=== PATIENT | female | born 1995 | race Caucasian/White ===

== ENCOUNTER → 2022-11-26 08:01 | Outpatient (CLI) | payer MEDICAID, SELFPAY ==
[2022-11-26 09:27] LABS: HCG,Quantitative 13888 mIU/ml (0-5.42)
[2022-11-27 07:08] LABS: Progesterone 9.1 ng/mL (.)
== END ==
PROVIDERS: PCP Internal Medicine; Visit Provider Obstetrics & Gynecology
DX: Z34.91 Encounter for supervision of normal pregnancy, unspecified, first trimester (principal)
CPT/HCPCS: 36415; 84144; 84702

== ENCOUNTER → 2022-12-30 13:09 | Outpatient (CLI) | payer MEDICAID, SELFPAY | PROVIDERS: Visit Provider Obstetrics & Gynecology | DX: Z34.91 Encounter for supervision of normal pregnancy, unspecified, first trimester (principal); Z3A.11 11 weeks gestation of pregnancy | CPT/HCPCS: 87086; 87088; 87186 ==

== ENCOUNTER → 2023-01-03 12:48 | Outpatient (CLI) | payer MEDICAID, SELFPAY ==
[2023-01-03 13:28] LABS: Basophils % 0.4 % (0.1-2.0); Eosinophils # 0.1 K/mm3 (0.0-0.4); Hematocrit 40.5 % (37.0-47.0); Hemoglobin 13.6 g/dL (12.2-16.2); Lymphocytes # 2.2 K/mm3 (0.7-4.5); Lymphocytes % 25.4 % (10-50); Mean Corpuscular HGB Conc 33.6 g/dL (31.8-35.4); Mean Corpuscular Hemoglobin 30.6 pg (27.0-31.2); Monocytes # 0.5 K/mm3 (0.1-1.0); Monocytes % 5.7 % (1.7-9.3); Neutrophils # 5.7 K/mm3 (1.8-7.8); Neutrophils % 67.5 % (37.0-80.0); Platelet Count 243 K/mm3 (142-424); Red Blood Count 4.45 M/mm3 (4.20-5.40); Red Cell Distribution Width 13.1 % (11.5-17.5); White Blood Count 8.4 K/mm3 (4.8-10.8)
[2023-01-04 10:20] LABS: HIV Screen 4th Generation wRfx Non Reactive (Non Reactive)
[2023-01-04 11:20] LABS: Rapid Plasma Reagin Ab Titer Non Reactive (NonRea<1:1)
[2023-01-04 13:25] LABS: Rubella Antibodies, IgG 0.91 index (Immune >0.99)
[2023-01-08 11:12] LABS: Hepatitis B Surface Antigen Negative
[2023-01-08 11:13] LABS: Hepatitis C Antibody Non Reactive
== END ==
PROVIDERS: PCP Internal Medicine; Visit Provider Obstetrics & Gynecology
DX: Z34.91 Encounter for supervision of normal pregnancy, unspecified, first trimester (principal); Z3A.11 11 weeks gestation of pregnancy
CPT/HCPCS: 36415; 85025; 86593; 86703; 86762; 86850; 87340; 87380; G0432

== ENCOUNTER → 2023-02-01 10:30 | Outpatient (CLI) | payer MEDICAID, SELFPAY ==
[2023-02-01 11:31] LABS: Alanine Aminotransferase 23 U/L (12-78); Albumin Level 3.8 g/dl (3.5-5.0); Alkaline Phosphatase 50 U/L (38-126); Anion Gap 12.9 mEq/L (5-15); Aspartate Amino Transferase 30 U/L (14-36); Bilirubin,Indirect 0.4 mg/dL (0.0-0.9); Bilirubin,Total 0.4 mg/dl (0.2-1.3); Bilirubin,Unconjugated 0.4 mg/dL (0.0-1.1); Blood Urea Nitrogen 11 mg/dl (7-17); Calcium 9.3 mg/dl (8.4-10.2); Carbon Dioxide 23 mmol/L (22.0-30.0); Chloride 104 mmol/L (98-107); Chol/HDL Ratio 2.1 (1-3.5); Cholesterol 206 mg/dl (140-200); Estimated Glomerular Filt Rate 149 ml/min (>60); GFR (African American) 180 ML/MIN (>60); Glucose 75 mg/dl (74-100); HDL Cholesterol 99 mg/dl (40-60); Magnesium 1.5 mg/dl (1.6-2.3); Potassium 3.9 mmoL/L (3.5-5.1); Sodium 136 mmol/L (136-145); Triglycerides 151 mg/dl (30-150); VLDL Cholesterol 30 mg/dL (0-40)
[2023-02-01 11:47] LABS: Free T4 (Free Thyroxine) 1.02 ng/dl (0.78-2.19)
[2023-02-01 11:53] LABS: Direct LDL Cholesterol 94.59 mg/dL (100-129)
[2023-02-01 12:02] LABS: Thyroid Stimulating Hormone 1.24 uIU/mL (0.465-4.68)
== END ==
PROVIDERS: PCP Internal Medicine; Visit Provider Nurse Practitioner
DX: R00.2 Palpitations (principal); R06.00 Dyspnea, unspecified
CPT/HCPCS: 36415; 80048; 80061; 80076; 83735; 84439; 84443; 93225

== ENCOUNTER → 2023-03-08 10:31 | Outpatient (CLI) | payer MEDICAID, SELFPAY ==
--- NOTE | 2023-03-08 10:31 | US_ITS ---
PROCEDURE: US OB /MATERNAL DETAIL CLINICAL INDICATION: 20 week anatomy scan COMPARISON: No exams were available for comparison FINDINGS: Transabdominal and transvaginal sonographic images of the pelvis were obtained. From her established due date she is 20 weeks 4 days. Single viable intrauterine gestation. Breech position. Placenta: Posteriorplacenta grade 1. Placenta low-lying and marginal previa, 1 cm from internal cervical os. There is an average amount of fluid. The cervix appears satisfactory. Closed and measuring in length. Complete survey performed and was unremarkable on the submitted images as in PACS. No discrete anomalies identified on survey imaging by technologist. Active fetus. Three-vessel cord with satisfactory umbilical cord insertion. 4- chamber heart noted. Aortic arch, LVOT, RVOT, three-vessel view appear normal. Survey of brain & ventricles Unremarkable. Cerebellum, cisterna magna, thalamus, choroid plexus appear normal. Face and neck survey unremarkable. Profile, nasion, lips and nose appeared normal. Diaphragm and chest views unremarkable. Abdomen: Both kidneys noted and unremarkable. Stomach and bladder noted and satisfactory. Spine: Survey of the spine satisfactory with no anomalies identified nor imaged. Cervical, thoracic and lower spine appear normal. Both arms and legs noted. Amniotic Fluid: Adequate. Measurements: Average ultrasound age 20weeks 5days. Estimated due date by ultrasound age 0307/21/2023. Estimated weight 362g BPD = 20weeks 6days HC = 20weeks 4days AC = 20weeks 6days FL = 20weeks 2days Heart Rate = 146bpm Cerebellum = 20weeks 4days Humerus = 20weeks 6days HC/AC is 1.16 FL/BPD is 0.67 FL/AC is 0.21 IMPRESSION: 1. Viable fetus in the breech presentation with a posterior placenta grade 1. 2. The posterior placenta is marginal previa and is approximately 1 cm from the internal cervical os. 3. Suggest repeat scan at 28 weeks to see if the marginal previa resolves. 4. Anatomical scan appears normal. 5. biometry is consistent with dates. Dictated by: Juanjose Knight MD 03/08/2023 15:59 Juanjose Knight MD in [place] 03/08/2023 15:59
[2023-03-08 11:56] LABS: Basophils % 0.3 % (0.1-2.0); Eosinophils # 0.1 K/mm3 (0.0-0.4); Hematocrit 37.2 % (37.0-47.0); Hemoglobin 12.8 g/dL (12.2-16.2); Lymphocytes % 17.9 % (10-50); Mean Corpuscular HGB Conc 34.5 g/dL (31.8-35.4); Mean Corpuscular Hemoglobin 32.2 pg (27.0-31.2); Mean Corpuscular Volume 93.3 fl (81-99); Mean Platelet Volume 8.3 fl (7.4-10.4); Monocytes # 0.5 K/mm3 (0.1-1.0); Monocytes % 4.5 % (1.7-9.3); Neutrophils # 8.6 K/mm3 (1.8-7.8); Neutrophils % 76.3 % (37.0-80.0); Platelet Count 214 K/mm3 (142-424); Red Blood Count 3.99 M/mm3 (4.20-5.40); Red Cell Distribution Width 13.7 % (11.5-17.5); White Blood Count 11.3 K/mm3 (4.8-10.8)
[2023-03-08 13:10] LABS: Alanine Aminotransferase 18 U/L (12-78); Albumin Level 3.6 g/dl (3.5-5.0); Alkaline Phosphatase 49 U/L (38-126); Anion Gap 13.9 mEq/L (5-15); Aspartate Amino Transferase 31 U/L (14-36); Bilirubin,Indirect 0.3 mg/dL (0.0-0.9); Bilirubin,Total 0.3 mg/dl (0.2-1.3); Bilirubin,Unconjugated 0.3 mg/dL (0.0-1.1); Blood Urea Nitrogen 13 mg/dl (7-17); Calcium 9.5 mg/dl (8.4-10.2); Carbon Dioxide 23 mmol/L (22.0-30.0); Chloride 103 mmol/L (98-107); Chol/HDL Ratio 2.1 (1-3.5); Cholesterol 210 mg/dl (140-200); Estimated Glomerular Filt Rate 149 ml/min (>60); GFR (African American) 180 ML/MIN (>60); Glucose 71 mg/dl (74-100); HDL Cholesterol 99 mg/dl (40-60); Magnesium 1.5 mg/dl (1.6-2.3); Potassium 3.9 mmoL/L (3.5-5.1); Sodium 136 mmol/L (136-145); Total Protein,Serum 6.5 g/dl (6.3-8.2); Triglycerides 180 mg/dl (30-150); VLDL Cholesterol 36 mg/dL (0-40)
[2023-03-08 13:21] LABS: Direct LDL Cholesterol 100.21 mg/dL (100-129)
[2023-03-08 13:27] LABS: Free T4 (Free Thyroxine) 1.01 ng/dl (0.78-2.19)
[2023-03-08 13:41] LABS: Thyroid Stimulating Hormone 1.59 uIU/mL (0.465-4.68)
== END ==
PROVIDERS: Physician Assistant; PCP Internal Medicine; Visit Provider Obstetrics & Gynecology
DX: Z34.92 Encounter for supervision of normal pregnancy, unspecified, second trimester (principal); Z3A.20 20 weeks gestation of pregnancy; R00.2 Palpitations; R06.00 Dyspnea, unspecified
CPT/HCPCS: 36415; 76811; 80048; 80061; 80076; 83735; 84439; 84443; 85025

== ENCOUNTER → 2023-04-18 09:01 | Outpatient (CLI) | payer MEDICAID, SELFPAY ==
[2023-04-18 09:52] LABS: Glucose,Fasting 76 mg/dl (74-100)
[2023-04-18 09:55] LABS: Basophils % 0.2 % (0.1-2.0); Eosinophils # 0.1 K/mm3 (0.0-0.4); Eosinophils % 1.1 % (0.1-12.0); Hematocrit 34.7 % (37.0-47.0); Hemoglobin 12.3 g/dL (12.2-16.2); Lymphocytes # 2.1 K/mm3 (0.7-4.5); Lymphocytes % 24.3 % (10-50); Mean Corpuscular HGB Conc 35.3 g/dL (31.8-35.4); Mean Corpuscular Hemoglobin 32.8 pg (27.0-31.2); Mean Platelet Volume 7.6 fl (7.4-10.4); Monocytes # 0.5 K/mm3 (0.1-1.0); Monocytes % 5.7 % (1.7-9.3); Neutrophils % 68.7 % (37.0-80.0); Platelet Count 203 K/mm3 (142-424); Red Blood Count 3.73 M/mm3 (4.20-5.40); Red Cell Distribution Width 13.9 % (11.5-17.5); White Blood Count 8.7 K/mm3 (4.8-10.8)
[2023-04-18 11:31] LABS: Glucose 1 Hour 163 mg/dL (74-100)
== END ==
PROVIDERS: PCP Internal Medicine; Visit Provider Obstetrics & Gynecology
DX: Z34.92 Encounter for supervision of normal pregnancy, unspecified, second trimester (principal); Z3A.26 26 weeks gestation of pregnancy
CPT/HCPCS: 36415; 82951; 85025

== ENCOUNTER → 2023-04-21 09:02 | Outpatient (CLI) | payer MEDICAID, SELFPAY ==
[2023-04-21 12:08] LABS: Glucose,Fasting 75 mg/dl (74-100)
[2023-04-21 12:09] LABS: Glucose 1 Hour 189 mg/dL (74-100); Glucose 2 Hour 150 mg/dL (74-100)
[2023-04-21 12:49] LABS: Glucose 3 Hour 127 mg/dL (74-100)
== END ==
PROVIDERS: PCP Internal Medicine; Visit Provider Obstetrics & Gynecology
DX: Z34.92 Encounter for supervision of normal pregnancy, unspecified, second trimester (principal); Z3A.26 26 weeks gestation of pregnancy
CPT/HCPCS: 36415; 82951

== ENCOUNTER → 2023-04-27 12:52 | Outpatient (CLI) | payer MEDICAID, SELFPAY ==
--- NOTE | 2023-04-27 12:53 | US_ITS ---
PROCEDURE: US OB LIMITED POSITION CLINICAL INDICATION: for placental location COMPARISON: US US OB /MATERNAL DETAIL from 03/08/2023 FINDINGS: Transabdominal sonographic images of the pelvis were obtained. The following parameters are obtained: From her established due date she is 27weeks 5days Viable fetus in the cephalic presentation with a posterior placenta grade 1. Low lying placenta is no longer present. There appears to be some bridging blood vessels in the posterior placenta possibly consist with accreta. The cervix measures 3.6 cm. heart rate: 158bpm bpm. No obvious anomalies evident. profile seen, stomach, bladder, three-vessel cord, four chamber heart appear normal. IMPRESSION: 1. Viable fetus in the cephalic presentation with a posterior placenta grade 1. 2. The low-lying posterior placenta has resolved. 3. There appears to be some bridging blood vessels in the posterior placenta possibly consistent with placenta accreta. Suggest a maternal medicine consult for confirmation. 4. Fetus is active and subjectively the fluid appears normal. Dictated by: Juanjose Knight MD 04/28/2023 09:50 Juanjose Knight MD in [place] 04/28/2023 09:50
== END ==
PROVIDERS: PCP Internal Medicine; Visit Provider Obstetrics & Gynecology
DX: O44.52 Low lying placenta with hemorrhage, second trimester (principal); Z36.89 Encounter for other specified antenatal screening
CPT/HCPCS: 76815

== ENCOUNTER → 2023-05-01 10:36 | Outpatient (CLI) | payer MEDICAID, SELFPAY ==
[2023-05-01 11:34] LABS: Basophils % 0.3 % (0.1-2.0); Eosinophils # 0.1 K/mm3 (0.0-0.4); Eosinophils % 0.7 % (0.1-12.0); Hematocrit 34.7 % (37.0-47.0); Hemoglobin 12.3 g/dL (12.2-16.2); Lymphocytes # 1.8 K/mm3 (0.7-4.5); Lymphocytes % 19.6 % (10-50); Mean Corpuscular HGB Conc 35.4 g/dL (31.8-35.4); Mean Corpuscular Hemoglobin 33.1 pg (27.0-31.2); Mean Corpuscular Volume 93.4 fl (81-99); Mean Platelet Volume 7.7 fl (7.4-10.4); Monocytes # 0.5 K/mm3 (0.1-1.0); Neutrophils # 6.8 K/mm3 (1.8-7.8); Neutrophils % 74.4 % (37.0-80.0); Platelet Count 225 K/mm3 (142-424); Red Blood Count 3.71 M/mm3 (4.20-5.40); Red Cell Distribution Width 13.9 % (11.5-17.5); White Blood Count 9.1 K/mm3 (4.8-10.8)
[2023-05-01 12:26] LABS: Free T4 (Free Thyroxine) 0.88 ng/dl (0.78-2.19)
[2023-05-01 12:40] LABS: Anion Gap 12.5 mEq/L (5-15); Blood Urea Nitrogen 10 mg/dl (7-17); Calcium 8.3 mg/dl (8.4-10.2); Carbon Dioxide 19 mmol/L (22.0-30.0); Chloride 106 mmol/L (98-107); Estimated Glomerular Filt Rate 149 ml/min (>60); GFR (African American) 180 ML/MIN (>60); Glucose 134 mg/dl (74-100); Magnesium 1.3 mg/dl (1.6-2.3); Potassium 3.5 mmoL/L (3.5-5.1); Sodium 134 mmol/L (136-145)
[2023-05-01 13:13] LABS: Thyroid Stimulating Hormone 1.38 uIU/mL (0.465-4.68)
== END ==
PROVIDERS: PCP Internal Medicine; Visit Provider Physician Assistant
DX: E83.42 Hypomagnesemia (principal); I51.9 Heart disease, unspecified; R00.0 Tachycardia, unspecified; R00.2 Palpitations; R06.00 Dyspnea, unspecified; R94.31 Abnormal electrocardiogram [ECG] [EKG]; Z3A.28 28 weeks gestation of pregnancy; O99.413 Diseases of the circulatory system complicating pregnancy, third trimester
CPT/HCPCS: 36415; 80048; 83735; 84439; 84443; 85025

== ENCOUNTER → 2023-05-12 10:03 | Outpatient (CLI) | payer MEDICAID, SELFPAY ==
--- NOTE | 2023-05-12 10:03 | CA_ITS ---
APPROVED REPORT EXAM: Comprehensive 2D, Doppler, and color-flow Echocardiogram Recording Artist: Krista Gonzalez, RCS, RVS Ht: 5 ft 6 in Wt: 130lbs BSA: 1.67 BP: 120/71 mmHg Indications: 28 weeks , SOB, Abn EKG, palpitations 2D Dimensions Aortic Root 2.84 cm F: 2.7 - 3.3 LVEF (Araya's) 51.20 % F: 54 - 74 Left Atrium 1.98 cm F: 2.7 - 3.8 LV Volume 81.80 mL F: 46 - 106 RVID Base (AP4) 2.94 cm (M/F) 2.5-4.1 LV Volume Index 49.0 mL/m2 F: 29 - 61 LVOT 2.10 cm (M/F) 1.5-2.5 LA Volume 36.50 mL LA Volume Index 21.86 mL/m2 (M/F) 16-34 EF AP4 55.40 % EF AP2 47.4 % EF BP 51.2 % GL Strain -19.0 % M-Mode Dimensions RVDd 2.59 cm (0.9-2.6) LVDd 4.11 cm (3.5-5.7) Ao Diam 2.91 cm (2.0-3.7) LVDs 2.94 cm (3.5-5.7) IVSd 0.87 cm (0.6-1.1) PWd 0.76 cm (0.6-1.1) EF (Teich) 55.40% EPSs 0.20 cm FS 28.50% EDV (Teich) 74.70 mL TAPSE 1.40 (<1.7) ESV (Teich) 33.30 mL LV Diastology E Decel Time 211 (160-240 msec) E/A Ratio 1.2 MED E' 10.0 (>= 7 cm/sec) MED A' 10.70 cm/s E'/MED E' Ratio 6.76 (<= 14) LAT E' 16.1 (>= 10 cm/sec) LAT A' 7.70 cm/s E/LAT E' Ratio 4.20 (<= 14) Aortic Valve LVOT Max 94.0 (70-110 cm/s) MYA Index 1.41 cm2/m2 LVOT VTI 17.56 cm AoV Peak Manny. 158.0 (50-130 cm/s) AO Mean GR. 5.00 (<5 mmHg) AO VTI 25.9 (18-25 cm) MYA (VTI) 2.35 (2.5-4.5 cm2) Mitral Valve MV E Max Manny. 68.0 (40-130 cm/s) MV A Velocity 59.0 (40-130 cm/s) E/A Ratio 1.15 MV Decel. Time 211 (160-240 ms) Left Ventricle The left ventricle is normal size. The left ventricular systolic function is normal. The left ventricular ejection fraction is within the normal range. There is normal left ventricular wall thickness. There is normal LV segmental wall motion. The left ventricular diastolic function is normal. LVEF is 60%. Right Ventricle The right ventricle is normal size. The right ventricular systolic function is normal. Atria The left atrium size is normal. The right atrium size is normal. There is no Doppler evidence of interatrial shunt. Aortic Valve The aortic valve is normal in structure. There is no aortic valvular stenosis. No aortic regurgitation is present. Mitral Valve The mitral valve is normal in structure. No evidence of mitral valve stenosis. Trace mitral regurgitation. Tricuspid Valve The tricuspid valve leaflets are thin and pliable. Trace tricuspid regurgitation. There is insufficient TR jet to estimate RVSP. Pulmonic Valve The pulmonary valve is normal in structure. Trace pulmonic regurgitation. Great Vessels The aortic root is normal in size. The ascending aorta is normal in size. IVC is normal in size and collapses >50% with inspiration. Pericardium There is no pericardial effusion. Other Information Study Quality: Adequate Conclusion Normal biventricular systolic function. No significant valvular stenosis or regurgitation. Electronically signed by : Kelsi Acosta MD 05/14/2023 00:24:08
== END ==
LOC: RT 10:03
PROVIDERS: PCP Internal Medicine; Visit Provider Physician Assistant
DX: O99.413 Diseases of the circulatory system complicating pregnancy, third trimester (principal); Z3A.29 29 weeks gestation of pregnancy; R06.00 Dyspnea, unspecified; R94.31 Abnormal electrocardiogram [ECG] [EKG]; R07.9 Chest pain, unspecified; R00.0 Tachycardia, unspecified; R00.2 Palpitations; E83.42 Hypomagnesemia
CPT/HCPCS: 93306

== ENCOUNTER 2023-06-23 16:20 | Outpatient (CLI) | payer MEDICAID, SELFPAY ==
[2023-06-23 16:57] VITALS: BP 118/78; PULSE 88; RESP 18; TEMP 37.1; O2SAT 100; BMI 21.9
[2023-06-23 17:06] LABS: Microscopic, Urine URINE MICROSCOPIC (MICROSCOPIC)
[2023-06-23 17:10] LABS: Appearance,Urine CLEAR (Clear); Bilirubin,Urine Negative (Negative); Blood, Urine Negative (Negative); Color,Urine YELLOW (Yellow); Glucose,Urine (UA) Negative (Negative); Ketones,Urine Negative (Negative); Leukocyte Esterase,Urine TRACE (Negative); Nitrate,Urine Negative (Negative); Protein,Urine Negative (Negative); Urobilinogen,Urine 0.2 EU/dl (0.2)
[2023-06-23 17:14] LABS: Fetal Membrane Rupture (Rapid) Negative (Negative)
[2023-06-23 17:36] LABS: Amphetamine/Metha Screen,Urine Negative ng/ml (<1000); Barbiturates Screen,Urine Negative ng/ml (<200)
[2023-06-23 17:39] LABS: Cannabinoid Screen,Urine Negative ng/ml (<50)
[2023-06-23 17:40] LABS: Cocaine Screen,Urine Negative ng/ml (<300)
[2023-06-23 17:41] LABS: Opiate Screen,Urine Negative ng/ml (<300)
[2023-06-23 17:42] LABS: Phencyclidine Screen,Urine Negative ng/ml (<25)
[2023-06-23 17:44] LABS: Benzodiazepines Screen,Urine Negative ng/ml (<200)
[2023-06-23 17:45] LABS: Methadone Screen,Urine Negative ng/ml (<300)
[2023-06-23 19:27] LABS: Bacteria,Urine Trace /lpf; WBC,Urine Occasional #/hpf (0-3)
== END 2023-06-23 17:27 | disposition home or self-care (01) ==
LOC: OBOUT 16:21 → OB 16:22
PROVIDERS: PCP Internal Medicine; Visit Provider Obstetrics & Gynecology
DX: O26.893 Other specified pregnancy related conditions, third trimester (principal); Z3A.35 35 weeks gestation of pregnancy
CPT/HCPCS: 59025; 80307; 81001; 84112; G0463

== ENCOUNTER 2023-06-27 16:36 | Outpatient (CLI) | payer MEDICAID, SELFPAY | END 2023-06-27 23:59 | LOC: LAB.DROPOF 16:36 | PROVIDERS: PCP Obstetrics & Gynecology; Visit Provider Obstetrics & Gynecology | DX: Z34.90 Encounter for supervision of normal pregnancy, unspecified, unspecified trimester (principal); Z3A.37 37 weeks gestation of pregnancy | CPT/HCPCS: 86403 ==

== ENCOUNTER 2023-07-16 07:20 | Inpatient (IN) | payer MEDICAID, SELFPAY ==
[2023-07-16] MEDS: OXYTOCIN/RINGERS LACTATE 30 UNITS/500 ML BAG 40 UNITS IV (07:20)
[2023-07-16 07:28] VITALS: BMI 23.6
--- NOTE | 2023-07-16 07:34 | EXP.OB.APHP ---
OB - H&P: HPI Antepartum History of Present Illness Chief complaint: Regular, painful contractions History of present illness: Mrs Yessenia Malik is a 28 yo at 39w1d who presented to [facility] L&D with complaint of regular, painful contractions that started at 0430 this morning. Contractions woke her from sleep. When she arrived in triage cervical exam was 10/100/+1. She had spontaneous rupture of membranes at 0656 while in stretcher in triage. Clear fluid noted by RN. Yessenia had good care. History of Present Criteria for establishing EDC:: LMP confirmed by 1st trimester US care: good care Ultrasounds: abnormal US findings (Normal anatomy but low lying placenta that resolved by 28 weeks) Obstetrical complications: none Labs Blood type: A (+) positive Rubella: nonimmune RPR/VDRL: nonreactive GBS status: negative HBsAG: negative [facility] Disclaimer: The information contained in this section may have been updated after the patient was seen, as this information can be updated by other users. Medical History (Updated 07/16/23 @ 07:48 by Larissa Maldonado DO) 39 weeks gestation of Abnormal electrocardiogram [ECG] [EKG] Active labor Cystic fibrosis carrier, antepartum Headache Hypomagnesemia Nausea and vomiting in Rubella non-immune status, antepartum Screening for genetic disease carrier status Sinus tachycardia Vaginal itching Vaginitis Surgical History History of hernia repair Family History Other Anemia FHx: mental illness Substance abuse Thyroid disorder Social History Smoking Status: Never smoker alcohol intake: current substance use type: denies use current occupational status: employed Travel in the last 8 weeks: None Review of Systems Review of Systems Review of systems:: pertinent systems reviewed and negative unless documented below Meds Home Medications and Allergies Home Medications Medication Instructions Recorded Confirmed Type promethazine 25 mg tablet 25 mg PO Q6H PRN nausea and 12/29/22 07/11/23 Rx vomiting #30 tabs magnesium oxide 400 mg (241.3 mg 400 mg PO BID #60 tabs 07/10/23 07/11/23 Rx magnesium) tablet vit no.95-ferrous 1 tab PO DAILY 07/11/23 07/11/23 History fumarate 28 mg-folic acid 800 mcg tablet () New Prescriptions to Start Prescriptions: Allergies Allergy/AdvReac Type Severity Reaction Status Date / Time No Known Allergies Allergy Verified 07/11/23 10:34 OB - H&P: Exam Constitutional no acute distress and cooperative Routine HEENT Exam Head: Present normocephalic and atraumatic Eye: Absent conjunctivae pink ENT: Present mucous membranes moist Routine Neck Exam Present full ROM Routine Respiratory Exam Present CTA bilaterally and normal respiratory effort Routine Cardiovascular Exam Present RRR Routine Abdominal Exam Present soft; Absent tenderness Routine Rectal Exam Patient deferred: visual exam Routine Exam External: Present normal urethra appearance; Absent erythema, tenderness, lesions or lacerations Routine Extremities Exam Present full ROM; Absent edema or calf tenderness Routine Neurological Exam Present alert, moving all extremities and normal speech Routine Psychiatric Exam Present normal affect and cooperative OB - A/P Antepartum (1) 39 weeks gestation of : Status: Acute (2) Active labor: Status: Acute (3) Cystic fibrosis carrier, antepartum: Status: Acute (4) Rubella non-immune status, antepartum: Status: Acute Additional Plan Planning to breastfeed?: Yes Additional Information:: Admit to [facility] L[facility]D for active labor GBS negative
--- NOTE | 2023-07-16 08:00 | EXP.DN ---
Delivery Note Delivery Date:: 07/16/23 Delivery Time:: 07:03 Anesthesia Type: None Was labor medically induced?: No Gestational age (weeks): 39 Infant delivered prior to 39 weeks?: No Justification for early elective delivery:: Active Labor Gender: Male at 1 minute: 7 at 5 minutes: 8 Delivery Procedure:: Mom complete on stretcher in room 272, triage. She delivered spontaneously with nursing staff. Baby was in warmer when DO arrive. Mom was in bed and doing well. Placenta delivered spontaneously and intact with gentle fundal massage. Bilateral labial abrasions hemostatic. Mom and baby were doing well after delivery Live male baby, Grant, weighing 7 lb 14 oz, APGARs 7 (1 min), 8 (5 min) EBL 100 mL
[2023-07-16 08:16] LABS: Basophils # 0.1 K/mm3 (0-0.2); Basophils % 0.6 % (0.1-2.0); Eosinophils # 0.1 K/mm3 (0.0-0.4); Eosinophils % 0.5 % (0.1-12.0); Hemoglobin 12.8 g/dL (12.2-16.2); Lymphocytes # 1.5 K/mm3 (0.7-4.5); Lymphocytes % 13.9 % (10-50); Mean Corpuscular Hemoglobin 31.7 pg (27.0-31.2); Mean Platelet Volume 9.5 fl (7.4-10.4); Monocytes # 0.7 K/mm3 (0.1-1.0); Monocytes % 6.3 % (1.7-9.3); Neutrophils # 8.6 K/mm3 (1.8-7.8); Neutrophils % 78.7 % (37.0-80.0); Platelet Count 214 K/mm3 (142-424); Red Blood Count 4.04 M/mm3 (4.20-5.40); Red Cell Distribution Width 13.6 % (11.5-17.5); White Blood Count 10.9 K/mm3 (4.8-10.8)
[2023-07-16 08:20] VITALS: BMI 23.6
[2023-07-16] MEDS: IBUPROFEN 400 MG TABLET 800 MG PO (12:08)
[2023-07-17] MEDS: ACETAMINOPHEN 500MG TAB 1000 MG PO (01:48)
[2023-07-17 06:09] LABS: Basophils # 0.1 K/mm3 (0-0.2); Basophils % 0.4 % (0.1-2.0); Eosinophils # 0.1 K/mm3 (0.0-0.4); Eosinophils % 0.8 % (0.1-12.0); Hematocrit 36.3 % (37.0-47.0); Hemoglobin 12.2 g/dL (12.2-16.2); Lymphocytes # 2.6 K/mm3 (0.7-4.5); Lymphocytes % 17.4 % (10-50); Mean Corpuscular HGB Conc 33.6 g/dL (31.8-35.4); Mean Corpuscular Hemoglobin 32.4 pg (27.0-31.2); Mean Corpuscular Volume 96.4 fl (81-99); Mean Platelet Volume 9.2 fl (7.4-10.4); Monocytes # 0.8 K/mm3 (0.1-1.0); Monocytes % 5.4 % (1.7-9.3); Neutrophils # 11.1 K/mm3 (1.8-7.8); Platelet Count 202 K/mm3 (142-424); Red Blood Count 3.77 M/mm3 (4.20-5.40); Red Cell Distribution Width 13.8 % (11.5-17.5); White Blood Count 14.6 K/mm3 (4.8-10.8)
--- NOTE | 2023-07-17 08:39 | EXP.DC.SUM ---
General Admission date:: 07/16/23 Discharge date: 07/17/23 HPI HPI HPI: PPD # 1 s/p Yessenia is feeling well. Pain controlled. Appropriate lochia. Breast feeding. Voiding without difficulty and passing flatus. Tolerating regular diet. Denies fever/chills, chest pain and shortness of breath. No headaches, vision changes, lightheadedness/dizziness. No swelling. Ambulating well ad johnny. Hospital Course Hospital Course Hospital Course: Mrs Yessenia Malik is a 28 yo at 39w1d who presented to [facility] L[facility] with complaint of regular, painful contractions that started at 0430 this morning. Contractions woke her from sleep. When she arrived in triage cervical exam was 10/100/+1. She had spontaneous rupture of membranes at 0656 while in stretcher in triage. Clear fluid noted by RN. Yessenia had good care. She had a normal spontaneous vaginal delivery on 07/16/23 at 0703. She delivered a live male baby, Grant, weighing 7 lb 14 oz. APGARs 7 (1 min), 8 (5 min). EBL 100 mL. She did well . Pain controlled. Breast feeding. Lochia was appropriate. Voiding without difficulty and passing flatus. Tolerating regular diet. Denies fever/chills, chest pain and shortness of breath. No headaches, dizziness/lightheadedness or vision changes. Vital signs stable, afebrile. Heart regular rate and rhythm. Lungs clear to auscultation. Abdomen soft, nontender. No lower extremity swelling. Ambulating well ad johnny. Normal hospital course. She was discharged to home on POD # 1 with instructions to follow-up in the office in 2 weeks or sooner if needed. Exam Data for Last 24 hours Vital signs and Labs for Last 24 Hours: Laboratory Results - last 24 hr 07/16/23 07:58: Blood Type A Positive, Antibody Screen Negative 07/17/23 05:32: WBC 14.6 H D, RBC 3.77 L, Hgb 12.2, Hct 36.3 L, MCV 96.4, MCH 32.4 H, MCHC 33.6, RDW 13.8, Plt Count 202, MPV 9.2, Neut % (Auto) 76.0, Lymph % (Auto) 17.4, [place] % (Auto) 5.4, Eos % (Auto) 0.8, Baso % (Auto) 0.4, Neut # (Auto) 11.1 H, Lymph # (Auto) 2.6, [place] # (Auto) 0.8, Eos # (Auto) 0.1, Baso # (Auto) 0.1 I & O for Last 24 hours: Intake & Output 07/14/23 07/15/23 07/16/23 07/17/23 23:59 23:59 23:59 23:59 Weight 146 lb Constitutional Constitutional: no acute distress and cooperative *Routine HEENT Exam Head: Present normocephalic and atraumatic Eye: Absent conjunctivae pink ENT: Present mucous membranes moist and dentition normal *Routine Neck Exam Neck: Present full ROM *Routine Respiratory Exam Respiratory: Present CTA bilaterally and normal respiratory effort *Routine Cardiovascular Exam Cardiovascular: Present RRR *Routine Abdominal Exam Abdominal: Present soft; Absent tenderness or distended Comments: Uterine fundus firm and below umbilicus *Routine Rectal Exam Patient deferred: visual exam *Routine Exam Patient deferred: external exam *Routine Extremities Exam Extremities: Present full ROM; Absent edema or calf tenderness *Routine Neurological Exam Neurological: Present alert, moving all extremities and normal speech Routine Psychiatric Exam Psychiatric: Present normal affect and cooperative Results Data Completed and Pending Labs on day of discharge: Labs from last 24 hours 07/17/23 07/16/23 05:32 07:58 WBC 14.6 H D RBC 3.77 L Hgb 12.2 Hct 36.3 L MCV 96.4 MCH 32.4 H MCHC 33.6 RDW 13.8 Plt Count 202 MPV 9.2 Neut % (Auto) 76.0 Lymph % (Auto) 17.4 [place] % (Auto) 5.4 Eos % (Auto) 0.8 Baso % (Auto) 0.4 Neut # (Auto) 11.1 H Lymph # (Auto) 2.6 [place] # (Auto) 0.8 Eos # (Auto) 0.1 Baso # (Auto) 0.1 Blood Type A Positive Antibody Screen Negative DS: Diagnosis Discharge Diagnosis (1) 39 weeks gestation of : Status: Acute Code(s): Z3A.39 - 39 weeks gestation of (2) Active labor: Status: Acute (3) Cystic fibrosis carrier, antepartum: Status: Acute Code(s): O09.899 - Supervision of other high risk pregnancies, unspecified trimester; Z14.1 - Cystic fibrosis carrier (4) Rubella non-immune status, antepartum: Status: Acute Code(s): O09.899 - Supervision of other high risk pregnancies, unspecified trimester; Z28.39 - Other underimmunization status Meds Home Medications and Allergies Home Medications Medication Instructions Recorded Confirmed Type vit no.95-ferrous 1 tab PO DAILY Supplement 07/11/23 07/16/23 History fumarate 28 mg-folic acid 800 mcg tablet () magnesium oxide 400 mg (241.3 mg 400 mg PO BID Supplement 07/16/23 07/16/23 History magnesium) tablet New Prescriptions to Start Prescriptions: Allergies Allergy/AdvReac Type Severity Reaction Status Date / Time No Known Allergies Allergy Verified 07/11/23 10:34 Discharge Plan Disposition Patient Disposition: Home, Self-Care Condition: Good Discharge Order Discharge Orders: Discharge Order (Routine); Ordered 07/17/23 Ordered By: Larissa Maldonado Follow up Plan Follow up with: Larsisa Maldonado DO [Staff Physician] - 07/31/23 2:45 pm Prescriptions/Medication Reconciliation: Continued PNV cmb#95-ferrous fumarate-FA [] 28 mg iron- 800 mcg tablet 1 tab PO DAILY Patient Comments: TAKE 1 TABLET BY MOUTH EVERY DAY magnesium oxide 400 mg (241.3 mg magnesium) tablet 400 mg PO BID Problem Reconciliation Problems Reviewed?: Yes Patient Discharge Instructions ACTIVITY: Limited activity DIET: continue same diet and regular diet Additional Instructions: Discharge: 1. Take 800 mg Ibuprofen every 8 hours as needed for pain. You can also take 500-1000 mg of Tylenol in between doses, every 6-8 hours. 2. Nothing in the vagina for 6 weeks - no intercourse, douching or tampons. No tub baths/hot tubs or swimming pools 3. Reasons to return to L&D or call On-Call doctor - fever (greater than 100.4) - heavy vaginal bleeding (soaking through 1 pad in less than 2 hours) - vaginal discharge (malodorous and/or purulent) - severe headaches not resolved by medication or rest and leg tenderness/edema 4. depression/blues - Normal to feel anxious/overwhelmed for first 2 weeks - Talk to your doctor if: severe anxiety, trouble bonding with baby, withdrawing from other family members, thoughts of harming yourself or others Larissa Maldonado DO [facility] [place] [phone] Patient Instructions: Depression, Hemorrhage, DI for Labor and Delivery, Vaginal , DI for Pre-eclampsia Providers Primary Care Provider: Abhilash Mann Provider: Larissa Maldonado Attending Provider: Larissa Maldonado
[2023-07-17] MEDS: IBUPROFEN 400 MG TABLET 800 MG PO (12:31)
[2023-07-17] MEDS: MEASLES,MUMPS,RUBELLA VACCINE VIAL 0.5 ML SQ (12:34)
== END 2023-07-17 15:45 | disposition home or self-care (01) | DRG 807 ==
LOC: OBOUT 07:20 → OB 07:20
PROVIDERS: Admitting Provider Obstetrics & Gynecology; PCP Internal Medicine; Visit Provider Obstetrics & Gynecology
DX: O80 Encounter for full-term uncomplicated delivery (principal); Z37.0 Single live birth; Z3A.39 39 weeks gestation of pregnancy; Z14.1 Cystic fibrosis carrier
CPT/HCPCS: 59409; 36415; 85025; 86850; 90707

== ENCOUNTER 2024-09-03 13:34 | Outpatient (CLI) | payer MEDICAID, SELFPAY ==
--- NOTE | 2024-09-03 13:30 | US_ITS ---
PROCEDURE: US TRANSVAGINAL CLINICAL INDICATION: IUD placement check COMPARISON: No exams were available for comparison FINDINGS: Transvaginal sonographic images of the pelvis were obtained. UTERUS: 9.3cm x 5cmx 3.7 cm anteverted with a combined endometrial thickness of 3.2mm. There is an IUD within the uterine cavity. It appears to be in the lower uterine segment. The IUD arms appear to be lodged within the posterior myometrium. See images 21 and 22. LEFT OVARY: 1.7 cmx2.2cmx2.3cm with a volume of 4.6ml. There are multiple small peripheral follicles giving the ovary a polycystic appearance. There are varicosities in the left adnexa giving the appearance of pelvic congestion. RIGHT OVARY: 2.6 cmx 2.6 cmx2.8 cm with a volume of 9.8ml. There are small to small follicles. Both ovaries are seen and appear normal. Doppler flow to both ovaries are seen. There is no fluid in the cul-de-sac. IMPRESSION: 1. Anteverted uterus upper limits of normal in size and normal in shape. The endometrium is thin measuring 3.2 mm. 2. There is an IUD in the lower uterine segment and it appears that the IUD arms are lodged within the posterior myometrium. 3. Left ovary appears polycystic and the right ovary has multiple small follicles. 4. There are varicosities in the left adnexa giving the appearance of pelvic congestion. 5. No fluid in the cul-de-sac. Dictated by: Juanjose Knight MD 09/03/2024 20:08 Juanjose Knight MD in [place] 09/03/2024 20:08
== END 2024-09-03 23:59 | disposition home or self-care (01) ==
LOC: RAD 13:35
PROVIDERS: PCP Pediatrics; Visit Provider Obstetrics & Gynecology
DX: Z30.430 Encounter for insertion of intrauterine contraceptive device (principal)
CPT/HCPCS: 76830